=== PATIENT | male | born 1990 | race Caucasian/White ===

== ENCOUNTER 2022-02-23 12:16 | Emergency (ER) | payer MEDICAID, OTHER ==
[~2022-02-23] VITALS: Ht 175.3 cm; Wt 86.0 kg
[2022-02-23] MEDS ORDERED: FOLIC ACID 1 MG, THIAMINE HCL 100 MG, MVI, ADULT NO.1 10 ML in DEXTROSE 5% WATER 1,000 ML IV ONE ×4 (15:00)
[2022-02-23 17:53] VITALS: BP 121/81
== END 2022-02-23 17:54 | disposition home or self-care (01) ==
LOC: ER 12:48 → EDBD 12:48 → ER 17:54
DX: F10.10 Alcohol abuse, uncomplicated (principal); Y90.0 Blood alcohol level of less than 20 mg/100 ml; R47.81 Slurred speech
CPT/HCPCS: 96365; 96366; 99284; J3411; J3490; J7070

== ENCOUNTER 2024-06-13 20:15 | Emergency (ER) | payer MEDICAID, OTHER ==
[~2024-06-13] VITALS: Ht 167.6 cm; Wt 73.0 kg
[2024-06-13 20:32] VITALS: BP 170/98; PULSE 124; RESP 14; TEMP 98.5; O2SAT 99
[2024-06-13] MEDS ORDERED: PANTOPRAZOLE SODIUM 40 MG/VIAL IV STA (20:33)
[2024-06-13] MEDS ORDERED: SODIUM CHLORIDE 0.9% 1,000 ML IV ONE (20:45)
[2024-06-13] MEDS ORDERED: LORAZEPAM 2MG/ML INJ IV ONE (20:45)
== END 2024-06-14 00:28 | disposition left against medical advice (07) ==
LOC: ER 20:15
DX: F10.939 Alcohol use, unspecified with withdrawal, unspecified (principal); E11.9 Type 2 diabetes mellitus without complications; R00.0 Tachycardia, unspecified; I10 Essential (primary) hypertension; Y90.9 Presence of alcohol in blood, level not specified
CPT/HCPCS: 99284; 74176; J7030